=== PATIENT | male | born 1935 | race Caucasian/White ===

== ENCOUNTER 2020-10-20 09:18 | Outpatient (CLI) | payer OTHER | END 2020-10-20 09:33 | disposition home or self-care (01) | LOC: RX STUDY 09:18 | PROVIDERS: ATTEND Internal Medicine Gastroenterology | DX: D50.8 Other iron deficiency anemias (principal); R10.13 Epigastric pain ==

== ENCOUNTER 2020-11-06 08:28 | Outpatient (CLI) | payer OTHER | END 2020-11-06 08:40 | disposition home or self-care (01) | LOC: TOM 08:28 | PROVIDERS: ATTEND Internal Medicine Gastroenterology | DX: K56.601 Complete intestinal obstruction, unspecified as to cause (principal); D50.8 Other iron deficiency anemias ==

== ENCOUNTER 2020-12-08 06:15 | Day surgery (SDC) | payer OTHER | END 2020-12-08 13:10 | disposition home or self-care (01) | LOC: AMB-ENDOS 06:15 | PROVIDERS: ATTEND Surgery | DX: D12.5 Benign neoplasm of sigmoid colon (principal); Z20.822 Contact with and (suspected) exposure to COVID-19 ==

== ENCOUNTER → 2021-01-14 08:00 | Outpatient (CLI) | payer OTHER ==
[~2021-01-14 08:00] MED LIST: ATACAND16 MG; CARDURA XL4 MG; CRESTOR10 MG; HYOSCYAMINE0.125 M1 SL; INTEGRA PLUS C1 EACH; INTESTINEX680 M1 PO; NORVASC5 MG; OMEPRAZOLE20 MG; OXYC1TAB9 PO; SOTALOL80 MG; SYNTHROID50 MCG; XARELTO15 MG
== END | disposition home or self-care (01) ==
LOC: LAB 08:00 → ADM 09:45 → EDSTATUS 01-18 09:45 → CIR.AMB 01-18 09:45 → SURH 01-18 09:45
PROVIDERS: ATTEND Surgery
DX: D12.2 Benign neoplasm of ascending colon (principal); R93.5 Abnormal findings on diagnostic imaging of other abdominal regions, including retroperitoneum; R19.4 Change in bowel habit; C67.1 Malignant neoplasm of dome of bladder; C18.2 Malignant neoplasm of ascending colon

== ENCOUNTER 2021-01-16 09:54 | Inpatient (IN) | payer OTHER ==
[~2021-01-16] VITALS: Ht 182.9 cm; Wt 78.5 kg
[~2021-01-16 09:54] MED LIST changes: -HYOSCYAMINE0.125 M1 SL; -INTEGRA PLUS C1 EACH; -INTESTINEX680 M1 PO; -OMEPRAZOLE20 MG; -OXYC1TAB9 PO; -SOTALOL80 MG; -XARELTO15 MG
[2021-01-18] MEDS ORDERED: XARELTO15 MG (08:50)
[2021-01-18] MEDS ORDERED: SOTALOL80 MG (08:50)
[2021-01-18] MEDS ORDERED: OMEPRAZOLE20 MG (08:51)
[2021-01-18] MEDS ORDERED: INTEGRA PLUS C1 EACH (08:51)
[2021-01-25] MEDS ORDERED: INTESTINEX680 M1 PO (10:24)
[2021-01-25] MEDS ORDERED: HYOSCYAMINE0.125 M1 SL (10:24)
[2021-01-25] MEDS ORDERED: OXYC1TAB9 PO (10:24)
== END 2021-01-25 15:04 | disposition home or self-care (01) | DRG 330 ==
LOC: SURH 09:54
PROVIDERS: ADMIT Internal Medicine Geriatric Medicine; ATTEND Internal Medicine Geriatric Medicine
PROC: 30233N1 Transfusion of Nonautologous Red Blood Cells into Peripheral Vein, Percutaneous Approach (ICD-10-PCS; 2021-01-16)
PROC: 3E0F7GC Introduction of Other Therapeutic Substance into Respiratory Tract, Via Natural or Artificial Opening (ICD-10-PCS; 2021-01-16)
PROC: 0DTF0ZZ Resection of Right Large Intestine, Open Approach (ICD-10-PCS; principal; 2021-01-18)
PROC: 07TB0ZZ Resection of Mesenteric Lymphatic, Open Approach (ICD-10-PCS; 2021-01-18)
PROC: 02HV33Z Insertion of Infusion Device into Superior Vena Cava, Percutaneous Approach (ICD-10-PCS; 2021-01-22)
PROC: 3E0436Z Introduction of Nutritional Substance into Central Vein, Percutaneous Approach (ICD-10-PCS; 2021-01-22)
PROC: BW21Y0Z Computerized Tomography (CT Scan) of Abdomen and Pelvis using Other Contrast, Unenhanced and Enhanced (ICD-10-PCS; 2021-01-22)
DX: C18.2 Malignant neoplasm of ascending colon (principal); I25.810 Atherosclerosis of coronary artery bypass graft(s) without angina pectoris; K91.31 Postprocedural partial intestinal obstruction; R14.0 Abdominal distension (gaseous); I11.9 Hypertensive heart disease without heart failure; E03.8 Other specified hypothyroidism; D63.8 Anemia in other chronic diseases classified elsewhere; I48.0 Paroxysmal atrial fibrillation; Z79.01 Long term (current) use of anticoagulants; Z20.822 Contact with and (suspected) exposure to COVID-19

== ENCOUNTER 2023-02-03 07:04 | Outpatient (CLI) | payer OTHER ==
[~2023-02-03 07:04] MED LIST changes: +HYOSCYAMINE0.125 M1 SL; +INTEGRA PLUS C1 EACH; +INTESTINEX680 M1 PO; +OMEPRAZOLE20 MG; +OXYC1TAB9 PO; +SOTALOL80 MG; +XARELTO15 MG
== END 2023-02-03 07:06 | disposition home or self-care (01) ==
LOC: RX STUDY 07:04
PROVIDERS: ATTEND Internal Medicine Gastroenterology
DX: R10.13 Epigastric pain (principal)

== ENCOUNTER 2023-04-06 07:34 | Outpatient (CLI) | payer OTHER | END 2023-04-06 07:36 | disposition home or self-care (01) | LOC: NUCLEAR 07:34 | PROVIDERS: ATTEND Internal Medicine Hematology & Oncology | DX: C18.2 Malignant neoplasm of ascending colon (principal) | CPT/HCPCS: 78815; A9552 ==